=== PATIENT | male | born 1980 | race Caucasian/White ===

== ENCOUNTER 2020-11-13 10:40 | Day surgery (SDC) | payer BC, SELFPAY ==
--- NOTE | 2020-11-12 14:06 | HO.ANESPROP2 ---
Documented by User: Sabi Francisco NP 11/12/20 14:09 HPI - Anesthesia Eval Consult details Narrative: 40yo M for Upper Endoscopy and Colonoscopy COUNT INCLUDES THE [facility] Past Medical History Medical History (Updated 11/13/20 @ 12:05 by Leny Barker MD) Anxiety and depression Asthma Diabetes mellitus GERD (gastroesophageal reflux disease) HTN (hypertension) CHANTAL (obstructive sleep apnea) PTSD (post-traumatic stress disorder) Sciatica Surgical History Surgical History (Updated 11/13/20 @ 11:16 by Leny Barker MD) H/O nasal septoplasty Hx of tonsillectomy Social History Social History (Updated 11/13/20 @ 12:03 by Leny Barker MD) Patient Tobacco Use Status: Never used Tobacco Tobacco use type: Smokeless Tobacco Smoked in Last 30 Days: No e-Cigarette/Vaping Use: Currently Using Use of substances other than those prescribed or required for medical reasons: Yes Are you DNR?: No Advance Directives: No Advance Directives Information Provided: Yes Recently lost weight without trying: No Nutrition Risks: No Nutritional Risk Meds Allergies Allergy/AdvReac Type Severity Reaction Status Date / Time amoxicillin Allergy Unknown Verified 11/13/20 11:04 topiramate [From Topamax] Allergy Unknown Verified 11/13/20 11:04 Cephalosporin Allergy Unknown Unknown Uncoded 11/13/20 11:04 Flonase Allergy Unknown Unknown Uncoded 11/13/20 11:04 Ultracet Allergy Unknown Unknown Uncoded 11/13/20 11:04 Home Medications Medication Instructions Recorded Confirmed Last Taken Type glipizide 2.5 mg tablet, extended 1 tab PO DAILY 11/12/20 11/12/20 Unknown History release 24 hr hydrocodone 5 mg-acetaminophen 325 1 tab PO Q6H 11/12/20 11/12/20 Unknown History mg tablet lisinopril 30 mg tablet 1 tab PO DAILY 11/12/20 11/12/20 11/13/20 10:00 History metformin 1,000 mg tablet 1 tab PO BID 11/12/20 11/12/20 Unknown History omeprazole 20 mg capsule,delayed 1 cap PO DAILY 11/12/20 11/12/20 Unknown History release Exam Exam Date and Time: November 12, 2020 1406 Assessment and Plan Assessment Anesthesia Assessment: Chart Reviewed Documented by User: Leny Barker MD 11/13/20 12:36 PMFSH Past Medical History Medical History (Updated 11/13/20 @ 12:05 by Leny Barker MD) Anxiety and depression Asthma Diabetes mellitus GERD (gastroesophageal reflux disease) HTN (hypertension) CHANTAL (obstructive sleep apnea) PTSD (post-traumatic stress disorder) Sciatica Family History Family history of problems with anesthesia: No Surgical History Surgical History (Updated 11/13/20 @ 11:16 by Leny Barker MD) H/O nasal septoplasty Hx of tonsillectomy History of Problems with Anesthesia: No Social History Social History (Updated 11/13/20 @ 12:03 by Leny Barker MD) Patient Tobacco Use Status: Never used Tobacco Tobacco use type: Smokeless Tobacco Smoked in Last 30 Days: No e-Cigarette/Vaping Use: Currently Using Use of substances other than those prescribed or required for medical reasons: Yes Are you DNR?: No Advance Directives: No Advance Directives Information Provided: Yes Recently lost weight without trying: No Nutrition Risks: No Nutritional Risk Meds Allergies Allergy/AdvReac Type Severity Reaction Status Date / Time amoxicillin Allergy Unknown Verified 11/13/20 11:04 topiramate [From Topamax] Allergy Unknown Verified 11/13/20 11:04 Cephalosporin Allergy Unknown Unknown Uncoded 11/13/20 11:04 Flonase Allergy Unknown Unknown Uncoded 11/13/20 11:04 Ultracet Allergy Unknown Unknown Uncoded 11/13/20 11:04 Home Medications Medication Instructions Recorded Confirmed Last Taken Type glipizide 2.5 mg tablet, extended 1 tab PO DAILY 11/12/20 11/12/20 Unknown History release 24 hr hydrocodone 5 mg-acetaminophen 325 1 tab PO Q6H 11/12/20 11/12/20 Unknown History mg tablet lisinopril 30 mg tablet 1 tab PO DAILY 11/12/20 11/12/20 11/13/20 10:00 History metformin 1,000 mg tablet 1 tab PO BID 11/12/20 11/12/20 Unknown History omeprazole 20 mg capsule,delayed 1 cap PO DAILY 11/12/20 11/12/20 Unknown History release Exam Height,Weight and Vital Signs: Height 5 ft 8 in Weight 92.986 kg Vital Signs Temp Pulse Resp BP Pulse Ox 11/13/20 11:10 98.9 F 101 H 16 142/95 H 97 Pertinent Lab Results Pertinent Lab Results: Lab Results 11/13/20 Range/Units 11:08 POC Glucose 130 H (60-115) mg/dL Narrative Narrative: Very anxious Airway Mallampati Class: III TM Dist: >3cm Neck ROM: Full Loose/Missing/Broken Teeth: Yes (Missing a few) Heart: RRR Lungs: CTAB Assessment and Plan Final Anesthetic Review Family History of Problems with Anesthesia: No History of Problems with Anesthesia: No NPO: Yes ASA Class: III Final Preanesthetic Review: No Changes in Pt Med Stat, Meds/Allgs Chart Reviewed and Consent Obtained/Reviewed Patient Risk: Intermediate Procedure Risk: Low Assessment/Block/Sedation in SS: Assess/Block/Sedation-SS Anesthetic Plan Anesthetic Plan: MAC: Disposition: Standard PACU
[2020-11-13 10:59] VITALS: BMI 31.1
[2020-11-13 11:10] VITALS: BP 142/95; PULSE 101; RESP 16; TEMP 37.2; O2SAT 97
[2020-11-13 11:11] LABS: Glucose, Whole Blood 130 mg/dL (60-115)
[2020-11-13] MEDS: Lactated Ringers 1,000 ML 100 ML IVCONT (11:20)
--- NOTE | 2020-11-13 11:57 | MHC.SHP ---
Pre-Procedural Eval Section A Date of Service: 11/13/20 The patient is an INPATIENT: No Changes since office visit: No Cold of Flu in the past 2 weeks, No New Medical Problems, No Changes in Medication and No Patient answered all questions The History & Physical has been completed within 30 days and I have reviewed it.: Yes Section B Chief Complaint: reflux,change in bowels Allergies: Allergies Allergy/AdvReac Type Severity Reaction Status Date / Time amoxicillin Allergy Unknown Verified 11/13/20 11:04 topiramate [From Topamax] Allergy Unknown Verified 11/13/20 11:04 Cephalosporin Allergy Unknown Unknown Uncoded 11/13/20 11:04 Flonase Allergy Unknown Unknown Uncoded 11/13/20 11:04 Ultracet Allergy Unknown Unknown Uncoded 11/13/20 11:04 Plan I have reviewed the history and physical and performed a pertinent physical examination on my patient. No changes have occurred unless specified.
[2020-11-13 12:37] VITALS: BP 116/60; PULSE 95; RESP 16; TEMP 36.5; O2SAT 99
--- NOTE | 2020-11-13 12:41 | PM.OP ---
Brief Operative Note Date of Service: 11/13/20 Pre-op diagnosis: gerd, change in bowels Post-op diagnosis: same (colon polyp) Procedure: EGD, Colonoscopy Surgeon: Adithya Rodriguez Anesthesia: MAC Was an Industrial Maintenance Repairer Helper used for this Procedure?: No Estimated blood loss (mL): 5 Pathology: other (bxs, antrum, egj,ti, r colon, sigmoid, rectal polyp) Condition: stable Disposition: PACU
[2020-11-13 12:52] VITALS: BP 118/76; PULSE 92; RESP 18; TEMP 36.1; O2SAT 96
--- NOTE | 2020-11-13 18:46 | OP_ITS ---
SURGEON: Adithya Rodriguez MD INDICATIONS: 1. Gastroesophageal reflux disease. 2. Change in bowel habits. PREOPERATIVE DIAGNOSIS: POSTOPERATIVE DIAGNOSIS: PROCEDURE PERFORMED: 1. Upper endoscopy with biopsy. 2. Colonoscopy to the terminal ileum with biopsy. ESTIMATED BLOOD LOSS: COMPLICATIONS: ANESTHESIA: ASSISTANTS: SPECIMENS: MEDICATIONS: Monitored anesthesia care. DESCRIPTION OF PROCEDURE: History and physical performed. The risks and benefits of the procedure were explained to the patient. Informed consent was obtained. The patient was placed in the left lateral decubitus position. The Olympus video gastroscope was introduced into the esophagus, stomach, and duodenum. Examination was performed and the scope was removed. He was repositioned for colonoscopy. A digital rectal exam was performed and was found to be normal. The Olympus pediatric video colonoscope was introduced into the rectum and advanced to the cecum without difficulty. The cecum was identified by transillumination, palpation, and identification of ileocecal valve. Examination was performed and the scope was removed. He tolerated both procedures well and was returned to recovery area in stable condition. FINDINGS: UPPER ENDOSCOPY: Esophagus: The esophagus was normal. There was no esophagitis. The EG junction was slightly irregular. This was biopsied. Stomach: The stomach showed no evidence of masses, ulcers, or polyps. Antral biopsies were obtained to rule out H pylori. Duodenum: The bulb and second portion were normal. COLONOSCOPY: The terminal ileum was examined and appeared normal. This was biopsied. There was no evidence of Crohn disease or ileitis. The visualized colonic mucosa was within normal limits without evidence of masses or ulcers. There was no diverticulosis. Biopsies were obtained from the right colon and the sigmoid colon. On retroflexed examination, there was a less than 5 mm hyperplastic appearing rectal polyp, which was removed with biopsy forceps. IMPRESSION: 1. Gastroesophageal reflux disease. 2. Normal upper endoscopy. 3. Colon polyp. RECOMMENDATIONS: 1. Follow up the biopsy results. 2. Repeat colonoscopy is recommended in 10 years for screening purposes. MD LOU Mota/VIDAL / [id number]
== END 2020-11-13 13:40 | disposition home or self-care (01) ==
PROVIDERS: PCP Physician Assistant; Visit Provider Internal Medicine Gastroenterology
PROC: (CPT 45380; principal; 2020-11-13 12:00)
DX: R19.4 Change in bowel habit (principal); K62.1 Rectal polyp; K21.9 Gastro-esophageal reflux disease without esophagitis; K29.50 Unspecified chronic gastritis without bleeding; I10 Essential (primary) hypertension; E11.9 Type 2 diabetes mellitus without complications; J45.909 Unspecified asthma, uncomplicated; F32.9 Major depressive disorder, single episode, unspecified; F43.10 Post-traumatic stress disorder, unspecified; Z88.0 Allergy status to penicillin; Z88.8 Allergy status to other drugs, medicaments and biological substances; Z79.84 Long term (current) use of oral hypoglycemic drugs; Z79.899 Other long term (current) drug therapy
CPT/HCPCS: 45380; 43239; 82947; 88305; 88342; J2250; J3010

== ENCOUNTER 2020-12-13 09:19 | Outpatient (REF) | payer BC, SELFPAY ==
--- NOTE | ~2020-12-13 | FL_ITS ---
EXAMINATION: FL SMALL BOWEL SERIES CLINICAL INFORMATION: Change in bowel habit. COMPARISON: None TECHNIQUE: Following a linux consultant image of the abdomen, contrast was administered orally, and interval abdominal radiographs were performed to assess for contrast progression through the small bowel. Following contrast transit through the small bowel and into the colon, the patient was placed on the fluoroscopy table, and multiple spot images were obtained. FINDINGS: A R Specialist image of the abdomen demonstrates a normal bowel gas pattern with minimal stool in the colon . There is normal transit time of contrast material through the small bowel, with contrast present in the colon by 1 hour 30 minutes. Small bowel loops are of normal caliber throughout the abdomen and pelvis. The jejunal and ileal fold patterns are normal, without evidence of abnormal thickening. No fixed regions of luminal narrowing are seen to suggest stricturing. The terminal ileum demonstrates a normal appearance. FLUOROSCOPY TIME: 0.6 minutes DOSE AREA PRODUCT: 10.056 uGy-m2 (microgray-meter squared) FL/FL small bowel follow through IMPRESSION: Normal small bowel series.
== END 2020-12-13 09:20 | disposition home or self-care (01) ==
LOC: HO.XRAY 09:19
PROVIDERS: PCP Physician Assistant; Visit Provider Internal Medicine Gastroenterology
DX: R19.4 Change in bowel habit (principal)
CPT/HCPCS: 74250